=== PATIENT | female | born 1975 | race American Indian/Alaskan Native ===

== ENCOUNTER 2021-10-07 13:49 | Outpatient (CLI) | payer BC ==
--- NOTE | 2021-10-08 11:01 | Mammography Report ---
DIGITAL DIAGNOSTIC MAMMOGRAM WITH CAD , 10/07/2021 CLINICAL INFORMATION / INDICATION: Follow-up left breast mass biopsied in 2016 and reported as benign . TECHNIQUE: Digital bilateral mammographic imaging was performed. This examination was interpreted with the benefit of Computer-aided Detection analysis. COMPARISON: 03/06/2019, 03/03/2018 FINDINGS: Breast Density: There are scattered areas of fibroglandular density. No dominant mass, suspicious calcifications or architectural distortion in the right breast. There is a stable round mass in the lower outer quadrant of the left breast, posterior depth, measuri ng 1.5 cm, with associated biopsy clip. Mass is stable compared to prior mammogram from 2018 and need s no further evaluation. Overall, the appearance of the mammogram is unchanged. IMPRESSION: No mammographic evidence of malignancy. Follow up recommendation: Routine yearly BI-RADS Category 2: BENIGN. A "normal" or negative report should not discourage follow up or biopsy of a clinically significant f inding. A written summary of these findings will be mailed to the patient. The patient will be entered into a mammography reporting system which will generate a reminder letter for the patient's next appointmen t at the appropriate interval. According to the [employer], yearly mammograms are recommended starting at age 40 and continuing as long as a woman is in good health. Breast MRI is recommended for women with an sangita roximately 20-25% or greater lifetime risk of breast cancer, including women with a strong family his tory of breast or ovarian cancer and women who have been treated for Hodgkin's disease. Signer Name: Ashlee Watres MD Signed: 10/08/2021 10:56 AM Workstation Name: [employer]
== END 2021-10-07 13:50 | disposition home or self-care (01) ==
LOC: SPVWC 13:49
PROVIDERS: ATTEND Obstetrics & Gynecology
DX: N63.23 Unspecified lump in the left breast, lower outer quadrant (principal)
CPT/HCPCS: 77066